=== PATIENT | male | born 1935 | race Caucasian/White ===

== ENCOUNTER 2018-05-01 12:28 | Outpatient (REF) | payer MEDICARE, MEDICAID, SELFPAY ==
[2018-05-01 23:50] LABS: Anion Gap 6.5 mmol/L (3-11); BUN 21 mg/dL (7-18); CO2 28.5 mmol/L (21.0-32.0); CREATININE 1.31 mg/dL (0.70-1.30); Calcium 8.7 mg/dL (8.5-10.1); Chloride 104 mmol/L (98-107); Estimated GFR 52.39 (mL/min/1.73m2); Glucose 134 mg/dL (70-100); Potassium 4.1 mmol/L (3.5-5.1); Sodium 139 mmol/L (136-145)
== END 2018-05-01 12:48 ==
LOC: NCHCN 12:28
PROVIDERS: Visit Provider Internal Medicine
DX: E11.9 Type 2 diabetes mellitus without complications (principal)
CPT/HCPCS: 80048

== ENCOUNTER 2018-07-31 13:36 | Outpatient (REF) | payer MEDICARE, MEDICAID, SELFPAY ==
[2018-07-31 22:14] LABS: COMMENT (LAB VIEW ONLY) 107.48 mg/dL; Microalb ug/mg Crea 7.3 ug/mg Cr
== END 2018-07-31 13:56 ==
LOC: NCHCN 13:36
PROVIDERS: Visit Provider Internal Medicine
DX: E11.9 Type 2 diabetes mellitus without complications (principal)
CPT/HCPCS: 82043; 82570

== ENCOUNTER 2019-06-02 13:48 | Outpatient (REF) | payer MEDICARE, SELFPAY ==
[2019-06-02 20:57] LABS: Anion Gap 8.4 mmol/L (3-11); BUN 21 mg/dL (7-18); CO2 29.6 mmol/L (21.0-32.0); CREATININE 1.28 mg/dL (0.70-1.30); Calcium 8.7 mg/dL (8.5-10.1); Calculated LDL 37 mg/dL; Chloride 103 mmol/L (98-107); Cholesterol 145 mg/dL (50-200); Estimated GFR 53.67 (mL/min/1.73m2); Glucose 139 mg/dL (70-100); HDL Cholesterol 37 mg/dL (40-60); Potassium 4.4 mmol/L (3.5-5.1); Sodium 141 mmol/L (136-145); Triglyceride 357 mg/dL (30-150)
[2019-06-02 20:59] LABS: Hemoglobin A1C 7.7 % (4.5-6.2)
[2019-06-02 21:03] LABS: COMMENT (LAB VIEW ONLY) 131.12 mg/dL; Microalb ug/mg Crea 4.9 ug/mg Cr
== END 2019-06-02 14:08 ==
LOC: NCHCO 13:48
PROVIDERS: Visit Provider Internal Medicine
DX: E11.9 Type 2 diabetes mellitus without complications (principal); I10 Essential (primary) hypertension; Z13.6 Encounter for screening for cardiovascular disorders
CPT/HCPCS: 80048; 80061; 82043; 82570; 83036

== ENCOUNTER → 2020-02-16 09:35 | Outpatient (BNVA) | payer OTHER, MEDICAID, SELFPAY | PROVIDERS: PCP Internal Medicine; Referring Provider Internal Medicine; Visit Provider Student in an Organized Health Care Education/Training Program | DX: M79.671 Pain in right foot (principal) | CPT/HCPCS: 99203 ==

== ENCOUNTER 2020-04-05 08:13 | Outpatient (REF) | payer OTHER, MEDICAID, SELFPAY ==
[2020-04-05 20:33] LABS: HCT 37.2 % (40.0-50.0); HGB 11.8 g/dL (13.5-17.5); MCH 29.1 pg (27.0-33.0); MCHC 31.7 % (32.0-36.0); MCV 91.6 fL (80-95); Platelet Count 165 10^3/uL (130-400); RBC 4.06 10^6/uL (4.36-5.78); RDW 14.3 % (11.8-14.1); RDW-SD 48.2 fL; WBC 7.44 10^3/uL (4.4-10.8)
[2020-04-05 20:43] LABS: ALT 20 U/L (16-63); AST 17 U/L (15-37); Albumin 3.4 g/dL (3.4-5.0); Alkaline Phosphatase 55 U/L (46-116); Anion Gap 10.3 mmol/L (3-11); BUN 23 mg/dL (7-18); Bilirubin, Total 0.4 mg/dL (0.2-1.0); CO2 27.7 mmol/L (21.0-32.0); Calcium 8.5 mg/dL (8.5-10.1); Chloride 103 mmol/L (98-107); Estimated GFR 48.28 (mL/min/1.73m2); Glucose 189 mg/dL (74-106); Potassium 3.6 mmol/L (3.5-5.1); Sodium 141 mmol/L (136-145); Total Protein 6.6 g/dL (6.4-8.2)
[2020-04-06 22:20] LABS: Reticulocyte 1.3 % (0.5-2.4)
[2020-04-06 22:21] LABS: Iron 60 ug/dL (65-175); Total Iron Binding Capacity 229 ug/dL (250-450); Transferrin Sat 26 % (20-55)
[2020-04-06 22:48] LABS: Ferritin 68 ng/mL (26-388); Folate 11.8 ng/mL (8.6-20.0); Vitamin B12 294 pg/mL (193-986)
== END 2020-04-05 08:33 ==
LOC: NCHCN 08:13
PROVIDERS: PCP Internal Medicine; Visit Provider Internal Medicine
DX: E11.9 Type 2 diabetes mellitus without complications (principal); I10 Essential (primary) hypertension; N18.3 Chronic kidney disease, stage 3 (moderate); E66.9 Obesity, unspecified; D64.9 Anemia, unspecified
CPT/HCPCS: 80053; 85027; 82607; 82728; 82746; 83036; 83540; 83550; 85045

== ENCOUNTER 2020-10-11 14:30 | Outpatient (REF) | payer OTHER, MEDICAID, SELFPAY ==
[2020-10-11 13:33] LABS: BUN 20 mg/dL (7-18); CREATININE 1.4 mg/dL (0.70-1.30); Calcium 8.8 mg/dL (8.5-10.1); Chloride 105 mmol/L (98-107); Estimated GFR 48.28 (mL/min/1.73m2); Glucose 197 mg/dL (74-106); Potassium 3.9 mmol/L (3.5-5.1); Sodium 143 mmol/L (136-145)
[2020-10-11 13:47] LABS: COMMENT (LAB VIEW ONLY) 163.76 mg/dL; Microalb ug/mg Crea 3.8 ug/mg Cr
== END 2020-10-11 14:31 | disposition home or self-care (01) ==
LOC: NCHCN 14:30
PROVIDERS: PCP Internal Medicine; Visit Provider Internal Medicine
DX: E11.9 Type 2 diabetes mellitus without complications (principal); I10 Essential (primary) hypertension
CPT/HCPCS: 80048; 82043; 82570

== ENCOUNTER 2021-01-10 09:45 | Outpatient (REF) | payer OTHER, MEDICAID, SELFPAY ==
[2021-01-10 13:43] LABS: Anion Gap 9.6 mmol/L (3-11); BUN 27 mg/dL (7-18); CO2 27.4 mmol/L (21.0-32.0); CREATININE 1.4 mg/dL (0.70-1.30); Calcium 8.9 mg/dL (8.5-10.1); Chloride 106 mmol/L (98-107); Estimated GFR 48.16 (mL/min/1.73m2); Glucose 143 mg/dL (74-106); Potassium 4.2 mmol/L (3.5-5.1); Sodium 143 mmol/L (136-145)
== END 2021-01-10 09:46 | disposition home or self-care (01) ==
LOC: NCHCN 09:45
PROVIDERS: PCP Internal Medicine; Visit Provider Internal Medicine
DX: I10 Essential (primary) hypertension (principal); N18.30 Chronic kidney disease, stage 3 unspecified
CPT/HCPCS: 80048

== ENCOUNTER 2021-06-09 02:21 | Outpatient (CLI) | payer MEDICARE, MEDICAID, SELFPAY ==
[2021-06-09 07:54] VITALS: BP 154/74; PULSE 76; RESP 19; TEMP 36.9; O2SAT 96
[2021-06-09 08:05] VITALS: BP 154/74; PULSE 76; RESP 20; TEMP 36.9; O2SAT 96
[2021-06-09 09:10] VITALS: BP 129/64; PULSE 71; RESP 20; TEMP 37.9; O2SAT 95
[2021-06-09 09:35] VITALS: BP 137/62; PULSE 72; RESP 20; TEMP 37.7; O2SAT 93
[2021-06-09 10:30] VITALS: BP 143/64; PULSE 71; RESP 20; TEMP 37.9; O2SAT 93
== END 2021-06-09 02:22 | disposition home or self-care (01) ==
LOC: INF 02:22
PROVIDERS: PCP Internal Medicine; Visit Provider Family Medicine
DX: U07.1 COVID-19 (principal)
CPT/HCPCS: 96365

== ENCOUNTER 2021-08-10 15:09 | Outpatient (REF) | payer MEDICARE, MEDICAID, SELFPAY ==
[2021-08-10 14:41] LABS: Abs Immature Grans 0.03 10^3/uL (0.0-0.06); Absolute Basophil Count 0.04 10^3/uL (0.0-0.2); Absolute Eosinophil Count 0.41 10^3/uL (0.0-0.7); Absolute Monocyte Count 0.63 10^3/uL (0.1-0.8); Absolute Neutrophil Count 3.06 10^3/uL (1.2-6.7); Basophils % 0.5; Eosinophils % 5.6; HGB 11.4 g/dL (13.5-17.5); Immature Grans % 0.4; Lymphocytes % 43.4; MCH 29.3 pg (27.0-33.0); MCHC 30.8 % (32.0-36.0); MCV 95.1 fL (80-95); Monocytes % 8.5; Neutrophils % 41.6; Nucleated RBC 0 %; Platelet Count 165 10^3/uL (130-400); RBC 3.89 10^6/uL (4.36-5.78); RDW 14.7 % (11.8-14.1); RDW-SD 51.6 fL; WBC 7.37 10^3/uL (4.4-10.8)
[2021-08-10 15:09] LABS: BUN 20 mg/dL (7-18); CREATININE 1.2 mg/dL (0.70-1.30); Calcium 8.7 mg/dL (8.5-10.1); Chloride 107 mmol/L (98-107); Estimated GFR 57.54 (mL/min/1.73m2); Ferritin 117 ng/mL (26-388); Glucose 137 mg/dL (74-106); Potassium 4.8 mmol/L (3.5-5.1); Sodium 143 mmol/L (136-145)
[2021-08-10 15:23] LABS: Iron 59 ug/dL (65-175); Total Iron Binding Capacity 239 ug/dL (250-450); Transferrin Sat 25 % (20-55)
[2021-08-10 17:20] LABS: Hemoglobin A1C 7.2 % (<5.7)
== END 2021-08-10 15:10 | disposition home or self-care (01) ==
LOC: NCHCN 15:09
PROVIDERS: PCP Internal Medicine; Visit Provider Internal Medicine
DX: E11.9 Type 2 diabetes mellitus without complications (principal); N18.30 Chronic kidney disease, stage 3 unspecified; D64.9 Anemia, unspecified
CPT/HCPCS: 80048; 82728; 83036; 83540; 83550; 85025

== ENCOUNTER 2021-11-15 15:07 | Outpatient (REF) | payer MEDICARE, MEDICAID, SELFPAY ==
[2021-11-15 16:57] LABS: COMMENT (LAB VIEW ONLY) 58.01 mg/dL; Microalb ug/mg Crea 11.7 ug/mg Cr
== END 2021-11-15 15:08 | disposition home or self-care (01) ==
LOC: NCHCN 15:07
PROVIDERS: PCP Internal Medicine; Visit Provider Nurse Practitioner Family
DX: E11.9 Type 2 diabetes mellitus without complications (principal)
CPT/HCPCS: 82043; 82570

== ENCOUNTER 2022-08-07 14:43 | Outpatient (REF) | payer OTHER, MEDICAID, SELFPAY ==
[2022-08-07 15:00] LABS: HCT 37.5 % (40.0-50.0); HGB 11.8 g/dL (13.5-17.5); MCH 29.9 pg (27.0-33.0); MCHC 31.5 % (32.0-36.0); MCV 95 fL (80-95); MPV 11.1 fL (8.0-11.0); Platelet Count 176 10^3/uL (130-400); RBC 3.95 10^6/uL (4.36-5.78); RDW 13.3 % (11.8-14.1); WBC 8.12 10^3/uL (4.4-10.8)
[2022-08-07 15:21] LABS: Anion Gap 8.6 mmol/L (3-11); BUN 24 mg/dL (7-18); CO2 26.4 mmol/L (21.0-32.0); CREATININE 1.3 mg/dL (0.70-1.30); Calcium 8.5 mg/dL (8.5-10.1); Calculated LDL 43 mg/dL (<100); Chloride 105 mmol/L (98-107); Cholesterol 125 mg/dL (<200); Glucose 128 mg/dL (74-106); HDL Cholesterol 42 mg/dL (40-60); Potassium 4.2 mmol/L (3.5-5.1); Sodium 140 mmol/L (136-145); Triglyceride 201 mg/dL (<150)
[2022-08-07 16:06] LABS: Hemoglobin A1C 7.1 % (<5.7)
== END 2022-08-07 14:44 | disposition home or self-care (01) ==
LOC: NCHCN 14:43
PROVIDERS: PCP Internal Medicine; Visit Provider Internal Medicine
DX: E11.9 Type 2 diabetes mellitus without complications (principal); I10 Essential (primary) hypertension; E66.9 Obesity, unspecified; D64.9 Anemia, unspecified
CPT/HCPCS: 80048; 80061; 85027; 83036

== ENCOUNTER 2022-11-13 16:01 | Outpatient (REF) | payer MEDICARE, MEDICAID, SELFPAY ==
[2022-11-13 21:54] LABS: COMMENT (LAB VIEW ONLY) 53.33 mg/dL; Microalb ug/mg Crea 8.8 ug/mg Cr
== END 2022-11-13 16:02 | disposition home or self-care (01) ==
LOC: NCHCN 16:01
PROVIDERS: PCP Internal Medicine; Visit Provider Internal Medicine
DX: E11.9 Type 2 diabetes mellitus without complications (principal)
CPT/HCPCS: 82043; 82570

== ENCOUNTER 2023-09-03 21:46 | Outpatient (REF) | payer MEDICARE, MEDICAID, SELFPAY ==
[2023-09-03 22:16] LABS: COMMENT (LAB VIEW ONLY) 48.95 mg/dL; Microalb ug/mg Crea 4.7 ug/mg Cr
== END 2023-09-03 21:47 | disposition home or self-care (01) ==
LOC: NCHCN 21:46
PROVIDERS: PCP Internal Medicine; Visit Provider Internal Medicine
DX: E11.9 Type 2 diabetes mellitus without complications (principal)
CPT/HCPCS: 82043; 82570

== ENCOUNTER 2023-09-06 12:57 | Outpatient (REF) | payer MEDICARE, MEDICAID, SELFPAY ==
[2023-09-06 15:47] LABS: HCT 40.2 % (40.0-50.0); HGB 13.2 g/dL (13.5-17.5); MCH 30.8 pg (27.0-33.0); MCHC 32.8 % (32.0-36.0); MCV 94 fL (80-95); MPV 11.8 fL (8.0-11.0); Platelet Count 180 10^3/uL (130-400); RBC 4.29 10^6/uL (4.36-5.78); RDW-SD 48.1 fL; WBC 8.37 10^3/uL (4.4-10.8)
[2023-09-06 16:05] LABS: ALT 16 U/L (16-63); AST 17 U/L (15-37); Albumin 3.5 g/dL (3.4-5.0); Alkaline Phosphatase 62 U/L (46-116); Anion Gap 8.1 mmol/L (3-11); BUN 32 mg/dL (7-18); Bilirubin, Total 0.6 mg/dL (0.2-1.0); CO2 27.9 mmol/L (21.0-32.0); CREATININE 1.4 mg/dL (0.70-1.30); Calcium 8.9 mg/dL (8.5-10.1); Chloride 105 mmol/L (98-107); Estimated GFR 48.65 (mL/min/1.73m2); Glucose 188 mg/dL (74-106); Potassium 4.3 mmol/L (3.5-5.1); Sodium 141 mmol/L (136-145); Total Protein 7.1 g/dL (6.4-8.2)
== END 2023-09-06 12:58 | disposition home or self-care (01) ==
LOC: NCHCN 12:57
PROVIDERS: PCP Internal Medicine; Visit Provider Internal Medicine
DX: K59.09 Other constipation (principal); N18.30 Chronic kidney disease, stage 3 unspecified
CPT/HCPCS: 80053; 85027; 84443

== ENCOUNTER 2024-08-15 12:36 | Outpatient (REF) | payer MEDICARE, MEDICAID, SELFPAY ==
[2024-08-15 15:55] LABS: Abs Immature Grans 0.03 10^3/uL (0.0-0.06); Absolute Basophil Count 0.05 10^3/uL (0.0-0.2); Absolute Eosinophil Count 0.35 10^3/uL (0.0-0.7); Absolute Lymphocyte Count 3.06 10^3/uL (1.2-3.4); Absolute Monocyte Count 0.59 10^3/uL (0.1-0.8); Absolute Neutrophil Count 3.48 10^3/uL (1.2-6.7); Basophils % 0.7 %; Eosinophils % 4.6 %; HCT 41.7 % (40.0-50.0); HGB 13.3 g/dL (13.5-17.5); Immature Grans % 0.4 %; Lymphocytes % 40.5 %; MCH 30.6 pg (27.0-33.0); MCHC 31.9 % (32.0-36.0); MCV 96 fL (80-95); MPV 11.3 fL (8.0-11.0); Monocytes % 7.8 %; Platelet Count 202 10^3/uL (130-400); RBC 4.35 10^6/uL (4.36-5.78); RDW 13.8 % (11.8-14.1); RDW-SD 49.1 fL; WBC 7.56 10^3/uL (4.4-10.8)
[2024-08-15 16:25] LABS: ALT 11 U/L (16-63); AST 17 U/L (15-37); Albumin 3.6 g/dL (3.4-5.0); Alkaline Phosphatase 67 U/L (46-116); Anion Gap 9.1 mmol/L (3-11); BUN 26 mg/dL (7-18); Bilirubin, Total 0.38 mg/dL (0.2-1.0); CO2 26.9 mmol/L (21.0-32.0); CREATININE 1.3 mg/dL (0.70-1.30); Calcium 8.9 mg/dL (8.5-10.1); Calculated LDL 51 mg/dL (<100); Chloride 111 mmol/L (98-107); Cholesterol 140 mg/dL (<200); Estimated GFR 52.84 (mL/min/1.73m2); Glucose 124 mg/dL (74-106); HDL Cholesterol 44 mg/dL (40-60); Potassium 4.4 mmol/L (3.5-5.1); Sodium 147 mmol/L (136-145); TSH (W/Ref FT4) 2.47 uIU/mL (0.36-3.74); Total Protein 7.1 g/dL (6.4-8.2); Triglyceride 228 mg/dL (<150)
== END 2024-08-15 12:37 | disposition home or self-care (01) ==
LOC: NCHCN 12:36
PROVIDERS: PCP Internal Medicine; Visit Provider Family Medicine
DX: I48.91 Unspecified atrial fibrillation (principal)
CPT/HCPCS: 80053; 80061; 84443; 85025

== ENCOUNTER 2024-09-05 16:40 | Outpatient (REF) | payer MEDICARE, MEDICAID, SELFPAY ==
[2024-09-05 21:35] LABS: COMMENT (LAB VIEW ONLY) 85.54 mg/dL; Microalb ug/mg Crea 5.6 ug/mg Cr
== END 2024-09-05 16:41 | disposition home or self-care (01) ==
LOC: NCHCN 16:40
PROVIDERS: PCP Internal Medicine; Visit Provider Internal Medicine
DX: E11.9 Type 2 diabetes mellitus without complications (principal)
CPT/HCPCS: 82043; 82570